=== PATIENT | male | born 1950 | race Caucasian/White ===

== ENCOUNTER 2018-04-24 09:49 | Emergency (ER) | payer MEDICARE ==
--- NOTE | 2018-04-24 10:26 | ER Document Report ---
ED Medical Screen (RME) - General Chief Complaint: Arm Pain Stated Complaint: RIGHT ARM PAIN Time Seen by Provider: 04/24/18 10:19 Notes: 68-year-old male patient from [facility] complains of pain to the left arm. States that her little bit last night and is much worse this morning. He does not know of any injuries. He states it feels similar to pain he had with his heart attack. Palpating the area is quite tender. I have greeted and performed a rapid initial assessment of this patient. A comprehensive ED assessment and evaluation of the patient, analysis of test results and completion of the medical decision making process will be conducted by additional ED providers. TRAVEL OUTSIDE OF THE [place] IN LAST 30 DAYS: No - Related Data Allergies/Adverse Reactions: No Known Allergies Allergy (Verified 04/24/18 09:51) Past Medical History - Social History Chew tobacco use (# tins/day): No Frequency of alcohol use: None Drug Abuse: None - Past Medical History Cardiac Medical History: Reports: Hx Heart Attack Endocrine Medical History: Reports: Hx Diabetes Mellitus Type 2 Renal/ Medical History: Denies: Hx Peritoneal Dialysis Past Surgical History: Reports: Hx Cholecystectomy, Hx Orthopedic Surgery, Hx Tonsillectomy Physical Exam - Vital signs Vitals: Temp Pulse Resp BP Pulse Ox 99.0 F 105 H 18 149/76 H 99 04/24/18 09:53 04/24/18 09:53 04/24/18 09:53 04/24/18 09:53 04/24/18 09:53 Course - Vital Signs Vital signs: Temp Pulse Resp BP Pulse Ox 99.0 F 105 H 18 149/76 H 99 04/24/18 09:53 04/24/18 09:53 04/24/18 09:53 04/24/18 09:53 04/24/18 09:53
[2018-04-24 11:08] LABS: ABSOLUTE BASOPHILS # (AUTO) 0.1 10^3/uL (0.0-0.2); ABSOLUTE EOSINOPHILS # (AUTO) 0.2 10^3/uL (0.0-0.6); ABSOLUTE LYMPHOCYTES (AUTO) 1.5 10^3/uL (0.5-4.7); ABSOLUTE MONOCYTES (AUTO) 0.5 10^3/uL (0.1-1.4); ABSOLUTE NEUT (AUTO) 6.7 10^3/uL (1.7-8.2); BASOPHILS % (AUTO) 0.6 % (0-2); EOSINOPHILS % (AUTO) 2.5 % (0-6); HEMATOCRIT 46.4 % (37.9-51.0); HEMOGLOBIN 16.4 g/dL (13.5-17.0); LYMPHOCYTES % (AUTO) 17.2 % (13-45); MEAN CORPUSCULAR HEMOGLOBIN 30.2 pg (27.0-33.4); MEAN CORPUSCULAR HGB CONC 35.4 g/dL (32.0-36.0); MEAN CORPUSCULAR VOLUME 85 fl (80-97); MONOCYTES % (AUTO) 5.2 % (3-13); PLATELET COUNT 240 10^3/uL (150-450); RED BLOOD COUNT 5.44 10^6/uL (4.35-5.55); SEGMENTED NEUTROPHILS % (AUTO) 74.5 % (42-78); TOTAL CELLS COUNTED % (AUTO) 100 %
[2018-04-24 11:22] LABS: ALANINE AMINOTRANSFERASE 19 U/L (21-72); ALBUMIN 4.6 g/dL (3.5-5.0); ALKALINE PHOSPHATASE 163 U/L (38-126); ANION GAP 11 (5-19); ASPARTATE AMINO TRANSFERASE 17 U/L (17-59); BILIRUBIN,DIRECT 0.2 mg/dL (0.0-0.4); BILIRUBIN,TOTAL 0.9 mg/dL (0.2-1.3); BLOOD UREA NITROGEN 20 mg/dL (7-20); CALCIUM 9.6 mg/dL (8.4-10.2); CARBON DIOXIDE 30 mmol/L (22-30); CHLORIDE 98 mmol/L (98-107); CREATINE KINASE 30 U/L (55-170); GLUCOSE 286 mg/dL (75-110); POTASSIUM 4.7 mmol/L (3.6-5.0); SODIUM 139.3 mmol/L (137-145); TOTAL PROTEIN 6.7 g/dL (6.3-8.2)
--- NOTE | 2018-04-24 12:07 | RADIOLOGY REPORT (SQ) ---
EXAM DESCRIPTION: HUMERUS LEFT COMPLETED DATE/TIME: 04/24/2018 11:59 am REASON FOR STUDY: pain COMPARISON: None. NUMBER OF VIEWS: Two views. TECHNIQUE: Two radiographic images were acquired of the left humerus to include elbow and shoulder i n at least one projection. LIMITATIONS: None. FINDINGS: MINERALIZATION: Normal. BONES: No acute fracture or dislocation. No worrisome bone lesions. SOFT TISSUES: No obvious swelling or foreign body. OTHER: No other significant finding. IMPRESSION: NEGATIVE STUDY OF THE LEFT HUMERUS. NO RADIOGRAPHIC EVIDENCE OF ACUTE INJURY. TECHNICAL DOCUMENTATION: JOB ID: [id number] [employer]- All Rights Reserved Reading location - IP/workstation name: [email or web address]
--- NOTE | 2018-04-24 13:18 | EKG REPORT ---
SEVERITY:- ABNORMAL ECG - SINUS TACHYCARDIA PROBABLE LEFT ATRIAL ABNORMALITY INFERIOR INFARCT, OLD INFARCT, OLD ANTERIOR : Confirmed by: Bobby Upton MD 24-Apr-2018 13:17:11
[2018-04-24] MEDS ORDERED: ACETAMINOPHEN 325 MG TABLET PO ONE (14:21)
--- NOTE | 2018-04-24 14:27 | ER Document Report ---
ED General - General Chief Complaint: Arm Pain Stated Complaint: RIGHT ARM PAIN Time Seen by Provider: 04/24/18 10:19 Primary Care Provider: GEOVANNY GAMEZ MD [Primary Care Provider] - Follow up as needed Mode of Arrival: Medic Information source: Patient, Relative Cannot obtain history due to: Dementia TRAVEL OUTSIDE OF THE [place] IN LAST 30 DAYS: No - HPI Patient complains to provider of: Shoulder pain Onset: Other - 68-year-old man with a history of marked dementia who is cu rrently living in a facility care for primarily by his sister who presents for evaluation of left arm pain. Through triage she had labs drawn was evaluated. His sister notes that he is complained of this pain multiple times in the past never identified as having an underlying cause. They deny any other recent injuries but she does note that it takes him great effort to stand up from his wheelchair and she thinks it could be exerting his arm. He is not take anything to try and help it feel better nothing makes it feel better or worse. - Related Data Allergies/Adverse Reactions: No Known Allergies Allergy (Verified 04/24/18 09:51) Past Medical History - General Information source: Patient, Relative - Social History Smoking Status: Former Smoker Chew tobacco use (# tins/day): No Frequency of alcohol use: None Drug Abuse: None Family History: None Patient has suicidal ideation: No Patient has homicidal ideation: No - Past Medical History Cardiac Medical History: Reports: Hx Heart Attack Endocrine Medical History: Reports: Hx Diabetes Mellitus Type 2 Renal/ Medical History: Denies: Hx Peritoneal Dialysis Past Surgical History: Reports: Hx Cholecystectomy, Hx Orthopedic Surgery, Hx Tonsillectomy Review of Systems - Review of Systems -: Yes All other systems reviewed and negative Physical Exam - Vital signs Vitals: Temp Pulse Resp BP Pulse Ox 99.0 F 105 H 18 149/76 H 99 04/24/18 09:53 04/24/18 09:53 04/24/18 09:53 04/24/18 09:53 04/24/18 09:53 - General General appearance: Appears well In distress: None - HEENT Head: Normocephalic, Atraumatic Eyes: Normal Pupils: PERRL - Respiratory Respiratory status: No respiratory distress Chest status: Nontender Breath sounds: Normal Chest palpation: Normal - Cardiovascular Rhythm: Regular Heart sounds: Normal auscultation Murmur: No - Abdominal Inspection: Normal Distension: No distension Bowel sounds: Normal Tenderness: Nontender Organomegaly: No organomegaly - Back Back: Normal, Nontender - Extremities General upper extremity: Tender - Tenderness over the left triceps General lower extremity: Normal inspection, Nontender, Normal strength, Normal temperature - Neurological Neuro grossly intact: No Cognition: Confused Orientation: Disoriented to time [place] Coma Scale Eye Opening: Spontaneous [place] Coma Scale Verbal: Oriented [place] Coma Scale Motor: Obeys Commands [place] Coma Scale Total: 15 Motor strength normal: LUE, RUE, LLE, RLE Additional motor exam normals: Equal cuff matcher - Psychological Associated symptoms: Normal affect, Normal mood Course - Re-evaluation Re-evalutation: 68-year-old demented man the presents for evaluation of pain in his arm. Through triage patient had labs ordered which demonstrated negative troponin, he is got marked tenderness which is just over his triceps on the left side. No other focal findings. His sister notes that he has great difficulty standing from his wheelchair, clinically likely this is a muscle strain of his left triceps. Given the negative labs reassuring vital signs and well appearance believe this patient is safe for discharge back to his facility as he has been complaining about this intermittently for the last several hours a single troponin is essentially diagnostic of no cardiac activity being the underlying cause of this. - Vital Signs Vital signs: Temp Pulse Resp BP Pulse Ox 97.7 F 99 16 158/91 H 97 04/24/18 14:32 04/24/18 14:32 04/24/18 14:32 04/24/18 14:32 04/24/18 14:32 - Laboratory Result Diagrams: 04/24/18 10:50 04/24/18 10:50 Laboratory results interpreted by me: 04/24/18 10:50 Creatinine 0.47 L Glucose 286 H ALT 19 L Alkaline Phosphatase 163 H Creatine Kinase 30 L Discharge - Discharge Clinical Impression: Muscle strain Arm pain Qualifiers: Laterality: left Qualified Code(s): M79.602 - Pain in left arm Condition: Good Disposition: HOME, SELF-CARE Instructions: Muscle Strain ([facility]) Additional Instructions: You were seen today in the emergency department for your muscle strain. YOu had an evaluation including a physical exam, tests of your blood, a tracing of your heart, and an x-ray of your arm. I think that your arm hurts because of a muscle strain. Use the Tylenol as needed to help with the pain in your arm. Return for any worsening muscle pain or strain. Prescriptions: Acetaminophen [Tylenol 325 mg Tablet] 650 mg PO Q4HP PRN #60 tablet PRN Reason: Referrals: GEOVANNY GAMEZ MD [Primary Care Provider] - Follow up as needed
[2018-04-24 14:33] VITALS: BP 158/91
== END 2018-04-24 14:48 | disposition home or self-care (01) ==
LOC: ER 09:49
DX: T14.8XXA Other injury of unspecified body region, initial encounter (principal); X58.XXXA Exposure to other specified factors, initial encounter; M79.602 Pain in left arm; F03.90 Unspecified dementia, unspecified severity, without behavioral disturbance, psychotic disturbance, mood disturbance, and anxiety; E11.9 Type 2 diabetes mellitus without complications; I25.2 Old myocardial infarction; Z87.891 Personal history of nicotine dependence
CPT/HCPCS: 93005; 99284; 36415; 82550; 85025; 80053; 84484; 73060; 93010; A9270

== ENCOUNTER → 2018-08-10 | Outpatient (CLI) | payer MEDICARE ==
[2018-08-10 09:34] LABS: ABSOLUTE BASOPHILS # (AUTO) 0.1 10^3/uL (0.0-0.2); ABSOLUTE EOSINOPHILS # (AUTO) 0.2 10^3/uL (0.0-0.6); ABSOLUTE LYMPHOCYTES (AUTO) 1.7 10^3/uL (0.5-4.7); ABSOLUTE MONOCYTES (AUTO) 0.5 10^3/uL (0.1-1.4); ABSOLUTE NEUT (AUTO) 4.5 10^3/uL (1.7-8.2); EOSINOPHILS % (AUTO) 3.5 % (0-6); HEMATOCRIT 48.6 % (37.9-51.0); HEMOGLOBIN 17.1 g/dL (13.5-17.0); LYMPHOCYTES % (AUTO) 24.1 % (13-45); MEAN CORPUSCULAR HEMOGLOBIN 29.4 pg (27.0-33.4); MEAN CORPUSCULAR HGB CONC 35.1 g/dL (32.0-36.0); MEAN CORPUSCULAR VOLUME 84 fl (80-97); MONOCYTES % (AUTO) 6.6 % (3-13); PLATELET COUNT 204 10^3/uL (150-450); RED CELL DISTRIBUTION WIDTH 13.6 % (11.5-14.0); SEGMENTED NEUTROPHILS % (AUTO) 64.8 % (42-78); TOTAL CELLS COUNTED % (AUTO) 100 %; WHITE BLOOD COUNT 6.9 10^3/uL (4.0-10.5)
[2018-08-10 09:51] LABS: ALANINE AMINOTRANSFERASE 26 U/L (21-72); ALBUMIN 4.3 g/dL (3.5-5.0); ALKALINE PHOSPHATASE 120 U/L (38-126); ANION GAP 12 (5-19); ASPARTATE AMINO TRANSFERASE 16 U/L (17-59); BILIRUBIN,DIRECT 0.3 mg/dL (0.0-0.4); BILIRUBIN,TOTAL 1.1 mg/dL (0.2-1.3); BLOOD UREA NITROGEN 20 mg/dL (7-20); CALCIUM 9.7 mg/dL (8.4-10.2); CARBON DIOXIDE 29 mmol/L (22-30); CHLORIDE 98 mmol/L (98-107); CHOLESTEROL 136.79 mg/dL (0-200); GLUCOSE 316 mg/dL (75-110); POTASSIUM 4.6 mmol/L (3.6-5.0); SODIUM 139.2 mmol/L (137-145); TOTAL PROTEIN 6.7 g/dL (6.3-8.2); TRIGLYCERIDES 155 mg/dL (<150)
[2018-08-10 10:02] LABS: DIRECT LDL 97 mg/dL (<100)
== END ==
LOC: LCAL 07:55
PROVIDERS: ATTEND Internal Medicine
DX: M62.82 Rhabdomyolysis (principal); E78.5 Hyperlipidemia, unspecified; E55.9 Vitamin D deficiency, unspecified; I63.9 Cerebral infarction, unspecified; E11.9 Type 2 diabetes mellitus without complications
CPT/HCPCS: 36415; 84443; 85025; 80053; 80061; G0103

== ENCOUNTER 2018-09-12 05:59 | Emergency (ER) | payer MEDICARE ==
[2018-09-12 06:43] VITALS: BP 156/78
--- NOTE | 2018-09-12 07:18 | ER Document Report ---
ED General - General Chief Complaint: Mouth Problem Stated Complaint: MOUTH BLEEDING Time Seen by Provider: 09/12/18 07:17 Primary Care Provider: GEOVANNY GAMEZ MD [Primary Care Provider] - Follow up in 3-5 days Notes: Patient is a 68-year-old male with history of CVA on Plavix that presents to the emergency department for chief complaint of tooth bleeding after extraction. Patient states that he had his tooth pulled yesterday in the afternoon, he is on Plavix, and was not told to stop it prior to his procedure, he states that his gum has been bleeding since then. He states his been spitting up blood constan tly. He denies any lightheadedness, dizziness, chest pain, shortness of breath, difficulty breathing, nausea, vomiting or abdominal pain. He currently rates his pain in the area as a 4 out of 10 describes as a constant ache. Past Medical History: Diabetes mellitus, hypertension, CAD, CVA Past Surgical History: Tooth extraction Social History: Denies tobacco, alcohol or drug use. Family History: Reviewed and noncontributory for presenting illness Allergies: Reviewed, see documented allergy list. REVIEW OF SYSTEMS: Other than noted above, the 12 point review of systems was reviewed with the patient and were negative, all pertinent findings are included in the HPI. PHYSICAL EXAMINATION: Vital signs reviewed, nursing noted reviewed. GENERAL: Patient appears uncomfortable and anxious HEAD: Atraumatic, normocephalic. EYES: Eyes appear normal, extraocular movements intact, sclera anicteric, conjunctiva are normal. ENT: nares patent, oropharynx clear without exudates. Moist mucous membranes. Poor dentition, noted to be blood oozing from the left upper gums, where previous tooth extraction was performed. NECK: Normal range of motion, supple without lymphadenopathy LUNGS: Breath sounds clear to auscultation bilaterally and equal. No wheezes rales or rhonchi. HEART: Regular rate and rhythm without murmurs ABDOMEN: Soft, nontender, normoactive bowel sounds. No rebound, guarding, or rigidity. No masses appreciated. EXTREMITIES: Nontender, good range of motion, no pitting or edema. NEUROLOGICAL: No focal neurological deficits. Moves all extremities spontaneously Motor and sensory grossly intact on exam. PSYCH: Normal mood, normal affect. SKIN: Warm, Dry, normal turgor, no rashes or lesions noted on exposed skin TRAVEL OUTSIDE OF THE [place] IN LAST 30 DAYS: No - Related Data Allergies/Adverse Reactions: No Known Allergies Allergy (Verified 04/24/18 09:51) Past Medical History - Social History Smoking Status: Unknown if Ever Smoked Family History: None Patient has suicidal ideation: No Patient has homicidal ideation: No - Past Medical History Cardiac Medical History: Reports: Hx Heart Attack Endocrine Medical History: Reports: Hx Diabetes Mellitus Type 2 Renal/ Medical History: Denies: Hx Peritoneal Dialysis Past Surgical History: Reports: Hx Cholecystectomy, Hx Oral Surgery - tooth removed 08/2018, Hx Orthopedic Surgery, Hx Tonsillectomy Physical Exam - Vital signs Vitals: Temp Pulse Resp BP Pulse Ox 97.4 F 96 20 156/78 H 99 09/12/18 06:12 09/12/18 06:12 09/12/18 06:12 09/12/18 06:12 09/12/18 06:12 Course - Re-evaluation Re-evalutation: Patient seen and examined vital signs reviewed. Patient was noted to have constant oozing and brisk bleeding from his left upper teeth from recent tooth extraction, it appears that he had 2 teeth extracted. Patient was treated with tranexamic acid 1000 mg nebulized The patient was re-evaluated and was still having significant bleeding, therefore it was decided to suture the patient's bleeding tooth extraction site, 230 simple interrupted sutures were performed after local dental block, patient tolerated well, and good hemostasis was obtained, his mouth was irrigated and washed out with normal saline extensively. Patient was monitored after this procedure, and was improved, no further significant bleeding, advised holding Plavix and aspirin for at least 24 hours. Evaluation was most consistent with gingival bleeding, status post tooth extraction. Advise close follow-up with his dentist. Discussed with the patient at this point, after careful consideration I feel that that patient can be discharged from the emergency department, the patient was educated treatments and reasons to return to the emergency department based on their presumed diagnosis as noted above, they were advised to followup with a primary care physician in 2-3 days. Patient was agreeable to plan of care. *Note is created using voice recognition software and may contain spelling, syntax or grammatical errors. - Vital Signs Vital signs: Temp Pulse Resp BP Pulse Ox 97.4 F 96 20 156/78 H 99 09/12/18 06:12 09/12/18 06:12 09/12/18 06:12 09/12/18 06:12 09/12/18 06:12 Procedures - Laceration/Wound Repair Left Wound length (cm): 1 Wound's Depth, Shape: Other - Dental Extraction wound Anesthetic type: 1% Lidocaine w/epi Volume Anesthetic (mLs): 4 Wound explored: No foreign body removed Irrigated w/ Saline (mLs): 150 Wound Repaired With: Sutures Suture Size/Type: 3:0, Other - Chromic Gut Number of Sutures: 2 Complications: No Notes: Patient was anesthetized with a local digital block, and using 2 simple interrupted chromic gut 3-0 sutures, hemostasis was obtained, patient's mouth was irrigated with saline extensively, patient tolerated well, no complications. Critical Care Note - Critical Care Note Total time excluding time spent on procedures (mins): 35 Comments: Critical care time 35 minutes exclusive from separate billable procedures for a patient requiring complex medical decision making, and high potential for clinical deterioration. In a patient on Plavix, with brisk hemorrhage from tooth extraction site, requiring hemostasis, and quick action with high potential for deterioration. Time spent obtaining history from patient or surrogate, discussions with consultants, development of treatment plan with patient or surrogate, evaluation of patient's response to treatment, examination of patient, ordering and performing treatments and interventions, ordering and review of laboratory studies, re-evaluation of patient's condition, ordering and review of radiographic studies and review of old charts Discharge - Discharge Clinical Impression: Gingival hemorrhage Condition: Stable Disposition: HOME, SELF-CARE Instructions: Toothache ([facility]) Additional Instructions: Please hold off on taking aspirin or Plavix or any other blood thinners for the next 24 hours, if you develop worsening bleeding again, if you are constantly spitting up blood, please return to the emergency department immediately. You need to call your dentist today to follow-up with him in the office. Referrals: GEOVANNY GAMEZ MD [Primary Care Provider] - Follow up in 3-5 days
[2018-09-12] MEDS ORDERED: LIDOCAINE 1%/EPINEPHRINE INJ 20 ML VIAL INJ ONE (07:37)
[2018-09-12] MEDS ORDERED: TRANEXAMIC ACID INJ/PF 1,000 MG/10 ML SDV IV ONE (07:38)
[2018-09-12] MEDS ORDERED: FENTANYL CITRATE INJ/PF 100 MCG/2 ML AMPUL IM ONE (08:44)
[2018-09-12] MEDS ORDERED: FENTANYL CITRATE INJ/PF 100 MCG/2 ML AMPUL IV ONE ×2 (08:51→11:23)
== END 2018-09-12 13:15 | disposition home or self-care (01) ==
LOC: ER 05:59
DX: K91.840 Postprocedural hemorrhage of a digestive system organ or structure following a digestive system procedure (principal); Z98.818 Other dental procedure status; E11.9 Type 2 diabetes mellitus without complications; I25.2 Old myocardial infarction; Z79.01 Long term (current) use of anticoagulants; Z86.73 Personal history of transient ischemic attack (TIA), and cerebral infarction without residual deficits
CPT/HCPCS: 96376; 99284; 96374; 96375; 12011; J3010; J3490 ×2